=== PATIENT | female | born 1985 | race Caucasian/White ===

== ENCOUNTER → 2019-11-17 13:27 | Outpatient (BNVA) | payer OTHER, SELFPAY | PROVIDERS: PCP Internal Medicine; Referring Provider Internal Medicine; Visit Provider Internal Medicine | DX: Z76.89 Persons encountering health services in other specified circumstances (principal) ==

== ENCOUNTER 2020-08-24 13:54 | Outpatient (REF) | payer OTHER, SELFPAY ==
[2020-08-24 16:37] LABS: MANUAL DIFF FLAG NO
[2020-08-24 16:42] LABS: Basophils Absolute Auto 0.1 X10*3/uL (0.0-0.2); Basophils Percent Auto 0.7 % (0-2); Eosinophils Absolute Auto 0.5 X10*3/uL (0.0-0.4); Eosinophils Percent Auto 4.8 % (0-4); Hematocrit 38.6 % (37-47); Hemoglobin 12.8 g/dl (12.0-16.0); Imm Gran Abs Auto 0.03 X10*3/uL (0.00-0.03); Imm Gran Pct Auto 0.3 % (0.0-0.4); Lymphocytes Absolute Auto 2.6 X10*3/uL (1.2-4.9); Lymphocytes Percent Auto 23.8 % (20-40); Mean Corpuscular HGB Conc 33.2 g/dl (31.0-35.0); Mean Corpuscular Hemoglobin 30.5 pg (27.0-33.0); Mean Corpuscular Volume 91.9 fL (80-98); Mean Platelet Volume 10.9 fL (9.4-12.3); Monocytes Absolute Auto 0.5 X10*3/uL (0.1-1.2); Monocytes Percent Auto 4.7 % (2-11); Neutrophils Absolute Auto 7.2 X10*3/uL (2.0-8.3); Neutrophils Percent Auto 65.7 % (45-73); Platelet Count 359 X10*3/uL (160-400); Red Cell Distribution Width 12.8 % (11.0-16.0); White Blood Count 10.9 X10*3/uL (4.8-10.8)
[2020-08-24 17:03] LABS: Alanine Aminotransferase 9 U/L (0-31); Albumin Level 3.8 g/dL (3.5-5.0); Alkaline Phosphatase 80 U/L (39-117); Anion Gap 14 (12-20); Aspartate Amino Transferase 13 U/L (5-31); Bilirubin Total 0.2 mg/dL (0.0-1.0); Blood Urea Nitrogen 11 mg/dL (9-16); Carbon Dioxide 23 mmol/L (22-29); Chloride 107 mmol/L (96-108); Estimated Glomerular Filt Rate > 60; Glucose Random 84 mg/dL (60-115); Magnesium 1.9 mg/dL (1.6-2.6); Potassium 4.2 mmol/L (3.3-5.1); Sodium 140 mmol/L (135-145); Total Protein 6.5 g/dL (6.5-8.0)
[2020-08-24 17:27] LABS: TSH reflex Free T4 1.14 uIU/mL (0.32-4.0)
[2020-08-24 17:28] LABS: Vitamin B12 632 pg/mL (200-900)
[2020-08-29 13:36] LABS: Vitamin D 25-OH, D2 5 ng/mL; Vitamin D 25-OH, D3 18 ng/mL; Vitamin D 25-OH, Total 23 ng/mL (30-100)
== END 2020-08-24 13:55 | disposition home or self-care (01) ==
LOC: HO.HMGCLDS 13:54
PROVIDERS: PCP Internal Medicine; Visit Provider Internal Medicine
DX: E66.09 Other obesity due to excess calories (principal); R11.0 Nausea; R19.4 Change in bowel habit; R60.9 Edema, unspecified; R41.89 Other symptoms and signs involving cognitive functions and awareness; R79.89 Other specified abnormal findings of blood chemistry
CPT/HCPCS: 36415; 80053; 82306; 82607; 83735; 84443; 85025

== ENCOUNTER → 2020-10-04 14:50 | Outpatient (BNVA) | payer OTHER, SELFPAY | PROVIDERS: PCP Internal Medicine; Visit Provider Surgery Vascular Surgery ==

== ENCOUNTER 2020-10-24 10:15 | Outpatient (REF) | payer OTHER, SELFPAY ==
--- NOTE | ~2020-10-24 | US_ITS ---
EXAMINATION: BILATERAL LOWER EXTREMITY VENOUS ULTRASOUND (Reflux Exam) CLINICAL INDICATION: This is a 35-year-old female with varicose veins and venous insufficiency. COMPARISON: None. TECHNIQUE: Color flow triplex imaging and compression Doppler was performed to evaluate both the deep and the superficial systems bilaterally. To evaluate the superficial system, the examination was performed in the upright position. Color-flow Doppler ultrasound and compression ultrasound were utilized. In addition, maneuvers were utilized to demonstrate reflux. FINDINGS: 1. DEEP VENOUS ULTRASOUND OF THE RIGHT LOWER EXTREMITY: Common Femoral Vein: Compressible, normal respiratory variation and augmented flow. Femoral vein: Compressible, normal color flow and augmentation. Popliteal Vein: Compressible, normal augmentation. Deep Reflux: There is no evidence of reflux in the deep system in either the common femoral vein or the popliteal vein. . There is no evidence of a Walker's cyst. 2. SUPERFICIAL ULTRASOUND WITH DOPPLER OF RIGHT LOWER EXTREMITY GREAT SAPHENOUS VEIN: Saphenofemoral junction: 0.6 cm. The reflux time is 492 ms. Mid thigh: 0.5 cm. The reflux time is 1184 ms. Above knee: 0.5 cm. The reflux time is 716 ms per Below knee: 0.4 cm. There is no reflux at this level and below. Mid calf: 0.2 cm Ankle: 0.2 cm GSV REFLUX: There is reflux in the great saphenous vein at the saphenofemoral junction and extending down to above the knee. DUPLICATED GREAT SAPHENOUS VEIN: None SMALL SAPHENOUS VEIN: Upper: 0.2 cm Lower: 0.3 cm SSV REFLUX: No evidence of reflux. VEIN OF GIACOMINI: None Imaged. PERFORATORS: None Imaged VARICOSITIES: There are 0.4 cm proximal thigh, at the knee, mid calf varicose veins, respectively, with greater than 1300 ms of reflux. 3. DEEP VENOUS ULTRASOUND OF THE LEFT LOWER EXTREMITY: Common Femoral Vein: Compressible, normal respiratory variation and augmented flow. Femoral vein: Compressible, normal color flow and augmentation. Popliteal Vein: Compressible, normal augmentation. Deep Reflux: There is no evidence of reflux in the deep system in either the common femoral vein or the popliteal vein. There is no evidence of a Walker's cyst. 4. SUPERFICIAL ULTRASOUND WITH DOPPLER OF LEFT LOWER EXTREMITY GREAT SAPHENOUS VEIN: Saphenofemoral junction: 0.8 cm. There is no reflux Mid thigh: 0.6 cm. The reflux time is 2960 ms. Above knee: 0.5 cm. There is no reflux at this level and below. Below knee: 0.4 cm Mid calf: 0.2 cm Ankle: 0.2 cm GSV REFLUX: There is a short segment of mid thigh reflux in the great saphenous vein. There is no reflux at the junction. DUPLICATED GREAT SAPHENOUS VEIN: There is a 0.3 cm duplicated left lateral great saphenous vein without reflux SMALL SAPHENOUS VEIN: Upper: 0.2 cm Lower: 0.2 cm SSV REFLUX: No evidence of reflux. VEIN OF GIACOMINI: None Imaged. PERFORATORS: There are 0.2 proximal calf perforators with 872 ms of reflux VARICOSITIES: There are 0.5 cm mid thigh varicose veins with the reflux time of 2932 ms. There is 0.3 cm distal thigh varicose veins with 972 ms of reflux. US/US venous duplex LE BI IMPRESSION: 1. There is a patent right great saphenous vein with reflux of 492 ms at the junction. The reflux in the mid thighs 388 ms. There is reflux of 1184 ms in the mid thigh. 2. There is a patent right small saphenous vein without reflux. 3. There are varicose veins at the knee in the mid calf measuring 0.4 cm. 4. There is a patent left great saphenous vein with an isolated segment of reflux in the mid thigh. There is no reflux at the junction. 5. There is a duplicated left lateral great saphenous vein without reflux. 6. There is a patent left small saphenous vein without evidence of reflux. 7. There are left thigh varicose veins as noted with reflux.
== END 2020-10-24 10:16 | disposition home or self-care (01) ==
LOC: HO.US 10:15
PROVIDERS: PCP Internal Medicine; Visit Provider Surgery Vascular Surgery
DX: I83.12 Varicose veins of left lower extremity with inflammation (principal)
CPT/HCPCS: 93970

== ENCOUNTER → 2020-11-08 15:20 | Outpatient (BNVA) | payer OTHER, SELFPAY | PROVIDERS: PCP Internal Medicine; Visit Provider Surgery Vascular Surgery ==

== ENCOUNTER → 2020-12-16 09:20 | Outpatient (BNVA) | payer OTHER, SELFPAY | PROVIDERS: PCP Internal Medicine; Visit Provider Surgery Vascular Surgery | DX: I83.11 Varicose veins of right lower extremity with inflammation (principal) | CPT/HCPCS: 36475 ==

== ENCOUNTER 2020-12-19 12:51 | Outpatient (REF) | payer OTHER, SELFPAY ==
--- NOTE | ~2020-12-19 | US_ITS ---
EXAMINATION: US VENOUS ULTRASOUND WITH DOPPLER LOWER EXTREMITY, RIGHT CLINICAL INFORMATION: Pain and swelling. Post right leg RFA. COMPARISON: Previous exam October 2020 TECHNIQUE: Ultrasound of the deep veins is performed from the hip to the calf with compression sonography and color and pulse Doppler assessment. Spectral analysis with color-flow imaging is performed. FINDINGS: There is normal venous compression and respiratory variation and augmented flow. The visualized common femoral vein, superficial femoral vein, profunda femoral vein, popliteal vein, and the trifurcation region shows no evidence of deep venous thrombosis. The right greater saphenous vein is occluded post-RFA. This extends to 3.5 cm from the saphenofemoral junction. There is no significant popliteal fossa cyst. US/US venous duplex LE RT IMPRESSION: No DVT demonstrated in the right lower extremity.
== END 2020-12-19 12:52 | disposition home or self-care (01) ==
LOC: HO.HMGCX 12:51
PROVIDERS: PCP Internal Medicine; Visit Provider Surgery Vascular Surgery
DX: M79.604 Pain in right leg (principal); Z98.890 Other specified postprocedural states
CPT/HCPCS: 93971

== ENCOUNTER → 2020-12-29 15:44 | Outpatient (BNVA) | payer OTHER, SELFPAY | PROVIDERS: PCP Internal Medicine; Visit Provider Surgery Vascular Surgery ==

== ENCOUNTER 2022-08-22 12:14 | Outpatient (AMB) | payer OTHER, SELFPAY ==
[2022-08-22 12:17] VITALS: BP 100/74; PULSE 84; O2SAT 98; BMI 36.2
--- NOTE | 2022-08-22 12:17 | MHC.PC.OV ---
Vital Signs 08/22/22 12:17 Height 5 ft 3 in Weight 204 lb 4 oz BMI 36.2 BP 100/74 Blood Pressure Location Lt brachial Position Sitting Pulse 84 Pulse Source Pulse Oximeter Pulse Oximetry (%) 98 Oxygen Delivery Method Room Air Intake Visit Reasons: 3m follow up Allergies bernice [BERNICE] Allergy (Unknown, Verified 08/22/22 12:18) ITCHING trazodone [TRAZODONE] Allergy (Unknown, Verified 08/22/22 12:18) RASH escitalopram [From Lexapro] Adverse Reaction (Mild, Verified 08/22/22 12:18) Agitated sertraline [From Zoloft] Adverse Reaction (Verified 08/22/22 12:18) Nightmares Buspirone Adverse Reaction (Uncoded 06/20/22 09:30) Headache Singular Adverse Reaction (Uncoded 06/20/22 09:30) Dry mouth Medication List - Last Reconciled 08/22/22 by Roland Naqvi MD albuterol sulfate 90 mcg/actuation 1 puff inhalation Q6H PRN 30 days alprazolam 0.25 mg (1/2 x 0.5 mg) PO DAILY PRN 30 days cetirizine (Zyrtec) 10 mg PO DAILY clotrimazole-betamethasone 1-0.05 % 1 appl topical ONCE 30 days dextroamphetamine-amphetamine 10 mg 0 tabs PO valacyclovir 500 mg PO BID PRN Tobacco use date assessed: 08/22/22 Dental Screening Dental Screen Date: 08/22/22 Did you have a dental visit in the last 12 months?: Yes Did you have a dental problem in the last 6 months where you did not have access to dental care?: No Was dental information given to patient?: No HPI 3m follow up HPI Details Patient is a 37-year-old female came in today medication refill Anxiety stable with alprazolam 0.25 mg daily, 90 tablets sent for next 3 months Patient is complying with the treatment plan no signs of abuse. She is a fair of medication side effects and is avoiding to drive or using machine while taking the medication. Patient is also on Adderall through neurology Dr. Mcdonald Due for labs today Follow-up 3 months [facility] Medical History Asthma, mild intermittent Depression, major, recurrent Environmental allergies Heart palpitations LFT elevation Lipid disorder PVC (premature ventricular contraction) Surgical History History of wisdom tooth extraction Family History Father No problems noted. Mother Other malformations of cerebral vessels Other Mental health disorder Social History Housing: Apartment Patient Tobacco Use Status: Never used Tobacco e-Cigarette/Vaping Use: Never Used Second Hand Smoke Exposure: No Current occupational status: employed Cognitive needs: No Hearing needs: No Vision needs: No Questionnaire Thrive Questionnaire Date Thrive assessed: 01/17/22 AUDIT C Alcohol Use Questionnaire (AUDIT-C) 1. How often do you have a drink containing alcohol?: Never 3. How often do you have six or more drinks on one occasion?: Never Total Score: 0 Score Reviewed/Action Taken: Yes USMAN-7 AMB Questionnaire SUMAN-7 Date SUMAN - 7 assessed: 01/17/22 Source: Developed by Drs. Pepe Warren, Angie Dee, Sanju Mcdaniels and colleagues, with an educational jaiden from [employer]. Review of Systems Const Denies chills and Denies fever(s) ENT Denies epistaxis and Denies nasal discharge Card Denies chest pain Resp Denies chest congestion, Denies cough and Denies hemoptysis GI Denies diarrhea and Denies nausea Skin/Breast Denies rash Neuro Reports no additional complaints Psych Reports no additional complaints Endo Reports no additional complaints Physical exam (Primary Care) Vital Signs: Last Vital Signs Pulse 84 08/22/22 12:17 BP 100/74 08/22/22 12:17 Pulse Ox 98 08/22/22 12:17 Oxygen Delivery Method Room Air 08/22/22 12:17 BMI result Body Mass Index 36.2 Tobacco/Smoking Status: Tobacco use Status Tobacco use date assessed 08/22/22 08/22/22 12:20 Patient Tobacco Use Status Never used Tobacco 08/22/22 12:20 e-Cigarette/Vaping Use Never Used 08/22/22 12:20 Thrive Assessment: Date of Thrive Assessment Date Thrive assessed 01/17/22 08/22/22 12:20 Const General: cooperative, comfortable and no acute distress Orientation/consciousness: patient oriented x3 HENMT Head: Yes normocephalic Eyes General: appearance normal, both eyes and all related structures Neck Neck: Yes supple Resp Effort & Inspection: normal respiratory effort, no cough and no stridor Cardio Rhythm: regular rhythm Heart sounds: S1 normal heart sound present and S2 normal heart sound present Skin General skin exam: turgor normal Neuro General: patient oriented x3, tone normal and moves all extremities Extrem Right lower extremity: no edema Left lower extremity: no edema Assessment and Plan Assessment & Plan (1) Anxiety, generalized: Code(s): F41.1 - Generalized anxiety disorder (2) Depression, major, recurrent: Code(s): F33.9 - Major depressive disorder, recurrent, unspecified Qualifiers: Active/Remission status: in full remission Qualified Code(s): F33.42 - Major depressive disorder, recurrent, in full remission (3) Environmental allergies: Code(s): Z91.09 - Other allergy status, other than to drugs and biological substances (4) Lipid disorder: Code(s): E78.9 - Disorder of lipoprotein metabolism, unspecified (5) Asthma, mild intermittent: Code(s): J45.20 - Mild intermittent asthma, uncomplicated Qualifiers: Asthma complication type: uncomplicated Qualified Code(s): J45.20 - Mild intermittent asthma, uncomplicated Plan Patient is a 37-year-old female came in today medication refill Anxiety stable with alprazolam 0.25 mg daily, 90 tablets sent for next 3 months Patient is complying with the treatment plan no signs of abuse. She is a fair of medication side effects and is avoiding to drive or using machine while taking the medication. Patient is also on Adderall through neurology Dr. Harry Ocampo for labs today Follow-up 3 months Orders: Orders Comprehensive Met. Panel Today E78.9 - Disorder of lipoprotein metabolism, unspecified, F33.9 - Major depressive disorder, recurrent, unspecified, F41.1 - Generalized anxiety disorder, J45.20 - Mild intermittent asthma, uncomplicated, Z91.09 - Other allergy status, other than to drugs and biological substances Roland Naqvi MD LDL Cholesterol Direct Today E78.9 - Disorder of lipoprotein metabolism, unspecified, F33.9 - Major depressive disorder, recurrent, unspecified, F41.1 - Generalized anxiety disorder, J45.20 - Mild intermittent asthma, uncomplicated, Z91.09 - Other allergy status, other than to drugs and biological substances Roland Naqvi MD Complete Blood Count Auto Diff Today E78.9 - Disorder of lipoprotein metabolism, unspecified, F33.9 - Major depressive disorder, recurrent, unspecified, F41.1 - Generalized anxiety disorder, J45.20 - Mild intermittent asthma, uncomplicated, Z91.09 - Other allergy status, other than to drugs and biological substances Roland Naqvi MD Medications: Changed From alprazolam Do not drive or work with heavy machinery while taking this medication Refill will require doctor's visit 0.25 mg (1/2 x 0.5 mg) PO DAILY 30 days PRN 14 tabs 0RF anxiety To alprazolam Do not drive or work with heavy machinery while taking this medication Refill will require doctor's visit 0.25 mg PO DAILY PRN 90 tabs 0RF anxiety 90 days Roland Naqvi MD From dextroamphetamine-amphetamine 10 mg PO 0RF To dextroamphetamine-amphetamine 10 mg 10 mg PO Coding Level of Care Code Est Pt Level 3 (43898) Diagnoses Anxiety, generalized F41.1 Depression, major, recurrent F33.42 Active/Remission status: in full remission Environmental allergies Z91.09 Lipid disorder E78.9 Asthma, mild intermittent J45.20 Asthma complication type: uncomplicated
== END 2022-08-22 12:48 | disposition home or self-care (01) ==
PROVIDERS: Visit Provider Internal Medicine
DX: F41.1 Generalized anxiety disorder (principal); F33.42 Major depressive disorder, recurrent, in full remission; Z91.09 Other allergy status, other than to drugs and biological substances; J45.20 Mild intermittent asthma, uncomplicated; E78.9 Disorder of lipoprotein metabolism, unspecified
CPT/HCPCS: 99213

== ENCOUNTER 2022-08-22 12:33 | Outpatient (REF) | payer OTHER, SELFPAY ==
[2022-08-22 16:11] LABS: MANUAL DIFF FLAG NO
[2022-08-22 16:23] LABS: Basophils Absolute Auto 0.1 X10*3/uL (0.0-0.2); Basophils Percent Auto 1.1 % (0-2); Eosinophils Absolute Auto 0.6 X10*3/uL (0.0-0.4); Eosinophils Percent Auto 5.5 % (0-4); Hemoglobin 13.5 g/dl (12.0-16.0); Imm Gran Abs Auto 0.04 X10*3/uL (0.00-0.03); Imm Gran Pct Auto 0.4 % (0.0-0.4); Lymphocytes Absolute Auto 2.9 X10*3/uL (1.2-4.9); Lymphocytes Percent Auto 25.9 % (20-40); Mean Corpuscular HGB Conc 32.9 g/dl (31.0-35.0); Mean Corpuscular Hemoglobin 31.4 pg (27.0-33.0); Mean Corpuscular Volume 95.3 fL (80.0-98.0); Mean Platelet Volume 10.6 fL (9.4-12.3); Monocytes Absolute Auto 0.6 X10*3/uL (0.1-1.2); Monocytes Percent Auto 5.2 % (2-11); Neutrophils Absolute Auto 6.9 x10*3/uL (2.0-8.3); Neutrophils Percent Auto 61.9 % (45-73); Platelet Count 370 X10*3/uL (160-400); Red Cell Distribution Width 13.1 % (11.0-16.0); White Blood Count 11.1 X10*3/uL (4.8-10.8)
[2022-08-22 17:09] LABS: Alanine Aminotransferase 11 U/L (0-31); Albumin Level 4.2 g/dL (3.5-5.0); Alkaline Phosphatase 75 U/L (39-117); Anion Gap 13 (12-20); Aspartate Amino Transferase 13 U/L (5-31); Bilirubin Total 0.3 mg/dL (0.0-1.0); Blood Urea Nitrogen 17 mg/dL (9-16); Carbon Dioxide 21 mmol/L (22-29); Chloride 109 mmol/L (96-108); Estimated Glomerular Filt Rate > 60; Glucose Random 84 mg/dL (60-115); Potassium 4.1 mmol/L (3.3-5.1); Sodium 139 mmol/L (135-145); Total Protein 7.1 g/dL (6.5-8.0)
[2022-08-24 12:57] LABS: LDL Cholesterol Direct 167 mg/dL (<100)
== END 2022-08-22 12:34 | disposition home or self-care (01) ==
LOC: HO.HMGCLDS 12:33
PROVIDERS: PCP Internal Medicine; Visit Provider Internal Medicine
DX: E78.9 Disorder of lipoprotein metabolism, unspecified (principal); F33.9 Major depressive disorder, recurrent, unspecified; F41.1 Generalized anxiety disorder; J45.20 Mild intermittent asthma, uncomplicated; Z91.09 Other allergy status, other than to drugs and biological substances
CPT/HCPCS: 36415; 80053; 83721; 85025

== ENCOUNTER 2022-11-23 09:13 | Outpatient (AMB) | payer OTHER, SELFPAY ==
--- NOTE | 2022-11-23 09:16 | A.OFFPC_ITS ---
Vital Signs 11/23/22 09:19 Height 5 ft 3 in Weight 222 lb 2 oz BMI 39.3 BP 124/78 Blood Pressure Location Rt brachial Position Sitting Pulse 89 Pulse Source Pulse Oximeter Pulse Oximetry (%) 98 Oxygen Delivery Method Room Air Intake Visit Reasons: 3 month follow up Allergies bernice [BERNICE] Allergy (Unknown, Verified 11/23/22 09:17) ITCHING trazodone [TRAZODONE] Allergy (Unknown, Verified 11/23/22 09:17) RASH escitalopram [From Lexapro] Adverse Reaction (Mild, Verified 11/23/22 09:17) Agitated sertraline [From Zoloft] Adverse Reaction (Verified 11/23/22 09:17) Nightmares Buspirone Adverse Reaction (Uncoded 06/20/22 09:30) Headache Singular Adverse Reaction (Uncoded 06/20/22 09:30) Dry mouth Medication List - Last Reconciled 11/23/22 by Roland Naqvi MD albuterol sulfate 90 mcg/actuation 1 puff inhalation Q6H PRN 30 days alprazolam 0.25 mg PO DAILY PRN 90 days cetirizine (Zyrtec) 10 mg PO DAILY clotrimazole-betamethasone 1-0.05 % 1 appl topical ONCE 30 days dextroamphetamine-amphetamine 10 mg 10 mg PO valacyclovir 500 mg PO BID PRN Tobacco use date assessed: 11/23/22 Dental Screening Dental Screen Date: 11/23/22 Did you have a dental visit in the last 12 months?: Yes Did you have a dental problem in the last 6 months where you did not have access to dental care?: No Was dental information given to patient?: Patient has dentist HPI 3 month follow up HPI Details Patient is a 37-year-old female came in today for a follow-up appointment Patient has gained some more weight, she says that her cat and that made her very depressed. She is also questioning sleep apnea, she says that when she is sleeping on her back she snores and frequently wake up. She is tired all day and fall asleep easily if she is watching TV any time of the day. I have ordered home sleep study Anxiety stable with alprazolam 0.25 mg as needed, patient says that she tried not to take it daily. She does not need any refills at this time. She has enough medication., BMI is elevated at 39.3 Last time she had labs done her cholesterol also is elevated LDL is in 160s I have placed I request for dietary consultation for the patient for obesity as well as for lipid disorder. Patient is also on Adderall through neurology Dr. Mcdonald Allergies are stable Follow-up 3 months [facility] Medical History Asthma, mild intermittent Lipid disorder LFT elevation Environmental allergies Depression, major, recurrent PVC (premature ventricular contraction) Heart palpitations Surgical History History of wisdom tooth extraction Family History Father No problems noted. Mother Other malformations of cerebral vessels Other Mental health disorder Social History Housing: Apartment Patient Tobacco Use Status: Never used Tobacco e-Cigarette/Vaping Use: Never Used Second Hand Smoke Exposure: No Current occupational status: employed Cognitive needs: No Hearing needs: No Vision needs: No Questionnaire PHQ-9 Over the last 2 weeks, how often have you been bothered by any of the following problems? 1. Little interest or pleasure in doing things: several days 2. Feeling down, depressed, or hopeless: several days 3. Trouble falling or staying asleep, or sleeping too much: nearly every day 4. Feeling tired or having little energy: nearly every day 5. Poor appetite or overeating: nearly every day 6. Feeling bad about yourself - or that you are a failure or have let yourself or your family down: more than half the days 7. Trouble concentrating on things, such as reading the newspaper or watching television: more than half the days 8. Moving or speaking so slowly that other people could have noticed. Or the opposite - being so fidgety or restless that you have been moving around a lot more than usual: not at all 9. Thoughts that you would be better off or of hurting yourself in some way: not at all Total score: 15 Depression Screening Interpretation: Positive Depression Screening Follow-up: Declines treatment Depression Screening Done: Yes 37558 - PHQ-9 Billing: Yes Source: Developed by Drs. Pepe Warren, Angie Dee, Sanju Mcdaniels and colleagues, with an educational jaiden from [employer]. Thrive Questionnaire Date Thrive assessed: 01/17/22 SUMAN-7 AMB Questionnaire SUMAN-7 Date SUMAN - 7 assessed: 01/17/22 Source: Developed by Drs. Pepe Warren, Angie Dee, Sanju Mcdaniels and colleagues, with an educational jaiden from [employer]. Review of Systems Const Denies chills and Denies fever(s) ENT Denies epistaxis and Denies nasal discharge Card Denies chest pain Resp Denies chest congestion, Denies cough and Denies hemoptysis GI Denies diarrhea and Denies nausea Skin/Breast Denies rash Neuro Reports no additional complaints Psych Reports no additional complaints Endo Reports no additional complaints Physical exam (Primary Care) Vital Signs: Last Vital Signs Pulse 89 11/23/22 09:19 BP 124/78 11/23/22 09:19 Pulse Ox 98 11/23/22 09:19 Oxygen Delivery Method Room Air 11/23/22 09:19 BMI result Body Mass Index 39.3 Tobacco/Smoking Status: Tobacco use Status Tobacco use date assessed 11/23/22 11/23/22 09:22 Patient Tobacco Use Status Never used Tobacco 11/23/22 09:22 e-Cigarette/Vaping Use Never Used 11/23/22 09:22 PHQ-9: PHQ-9 Score PHQ-9: Total score 15 11/23/22 09:34 Depression Screening Interpretation: Positive Depression Screening Follow-up: Declines treatment Thrive Assessment: Date of Thrive Assessment Date Thrive assessed 01/17/22 11/23/22 09:22 Const General: cooperative, comfortable and no acute distress Orientation/consciousness: patient oriented x3 HENMT Head: Yes normocephalic Eyes General: appearance normal, both eyes and all related structures Neck Neck: Yes supple Resp Effort & Inspection: normal respiratory effort, no cough and no stridor Cardio Rhythm: regular rhythm Heart sounds: S1 normal heart sound present and S2 normal heart sound present Skin General skin exam: turgor normal Neuro General: patient oriented x3, tone normal and moves all extremities Extrem Right lower extremity: no edema Left lower extremity: no edema Office Procedures Flu Questionnaire Does the patient have a severe egg allergy?: No Does the patient have severe life threatening allergies?: No Does the patient have a fever or illness today?: No Has the patient ever had Guillain-Nisswa Syndrome?: No Has the patient ever had any past reaction to a flu shot?: No Immunizations flu vacc [id number] 6mos up(PF) 60 mcg(15 mcgx4)/0.5 mL IM syringe Performing Provider: Roland Naqvi MD [facility] Administered by: GOOD Alvarez on 11/23/22 09:35 Dose Route Admin Location Dispensed Lot Number Expiration Date NDC Makeup Sales Advisor 0.5 mL IM Right Deltoid 0.5 mL [id number] 08/11/23 15751-234-66 Cheers VIS Given Date VIS Provided VIS Publication Date 11/23/22 Single Vaccine 20 Eligibility Eligibility Date Funding Source Not [facility] Eligible 11/23/22 Private Assessment and Plan Assessment & Plan (1) Frequent nocturnal awakening: Code(s): G47.00 - Insomnia, unspecified (2) Daytime somnolence: Code(s): R40.0 - Somnolence (3) Depression, major, recurrent: Code(s): F33.9 - Major depressive disorder, recurrent, unspecified Qualifiers: Active/Remission status: in full remission Qualified Code(s): F33.42 - Major depressive disorder, recurrent, in full remission (4) Anxiety, generalized: Code(s): F41.1 - Generalized anxiety disorder (5) Environmental allergies: Code(s): Z91.09 - Other allergy status, other than to drugs and biological substances (6) Lipid disorder: Code(s): E78.9 - Disorder of lipoprotein metabolism, unspecified (7) Asthma, mild intermittent: Code(s): J45.20 - Mild intermittent asthma, uncomplicated Qualifiers: Asthma complication type: uncomplicated Qualified Code(s): J45.20 - Mild intermittent asthma, uncomplicated (8) Brain fog: Code(s): R41.89 - Other symptoms and signs involving cognitive functions and awareness (9) Obesity due to excess calories: Code(s): E66.09 - Other obesity due to excess calories Qualifiers: Body mass index: BMI 39.0-39.9 Obesity classification: adult class 2 (BMI 35 - 39.9) Serious obesity comorbidity presence: without serious comorbidity Qualified Code(s): E66.09 - Other obesity due to excess calories; Z68.39 - Body mass index [BMI] 39.0-39.9, adult (10) Snoring: Code(s): R06.83 - Snoring Plan Patient is a 37-year-old female came in today for a follow-up appointment Patient has gained some more weight, she says that her cat and that made her very depressed. She is also questioning sleep apnea, she says that when she is sleeping on her back she snores and frequently wake up. She is tired all day and fall asleep easily if she is watching TV any time of the day. I have ordered home sleep study Anxiety stable with alprazolam 0.25 mg as needed, patient says that she tried n ot to take it daily. She does not need any refills at this time. She has enough medication., BMI is elevated at 39.3 Last time she had labs done her cholesterol also is elevated LDL is in 160s I have placed I request for dietary consultation for the patient for obesity as well as for lipid disorder. Patient is also on Adderall through neurology Dr. Mcdonald Allergies are stable Follow-up 3 months Orders: Orders RT home sleep study Today E66.09 - Other obesity due to excess calories, G47.00 - Insomnia, unspecified, R06.83 - Snoring, R40.0 - Somnolence, R41.89 - Other symptoms and signs involving cognitive functions and awareness Influenza [id number] Immunization Today Z23 - Encounter for immunization Coding Level of Care Code Est Pt Level 4 (31554) Diagnoses Frequent nocturnal awakening G47.00 Daytime somnolence R40.0 Recurrent major depressive disorder, in full remission F33.42 Active/Remission status: in full remission Anxiety, generalized F41.1 Environmental allergies Z91.09 Lipid disorder E78.9 Mild intermittent asthma without complication J45.20 Asthma complication type: uncomplicated Brain fog R41.89 Class 2 obesity due to excess calories without serious comorbidity with body mass index (BMI) of 39.0 to 39.9 in adult E66.09; Z68.39 Body mass index: BMI 39.0-39.9 Obesity classification: adult class 2 (BMI 35 - 39.9) Serious obesity comorbidity presence: without serious comorbidity Snoring R06.83
[2022-11-23 09:19] VITALS: BP 124/78; PULSE 89; O2SAT 98; BMI 39.3
== END 2022-11-23 09:35 | disposition home or self-care (01) ==
PROVIDERS: PCP Internal Medicine; Visit Provider Internal Medicine
DX: G47.00 Insomnia, unspecified (principal); R40.0 Somnolence; F33.42 Major depressive disorder, recurrent, in full remission; F41.1 Generalized anxiety disorder; Z91.09 Other allergy status, other than to drugs and biological substances; E78.9 Disorder of lipoprotein metabolism, unspecified; J45.20 Mild intermittent asthma, uncomplicated; R41.89 Other symptoms and signs involving cognitive functions and awareness; E66.09 Other obesity due to excess calories; Z68.39 Body mass index [BMI] 39.0-39.9, adult; R06.83 Snoring; Z23 Encounter for immunization
CPT/HCPCS: 90471; 90686; 99214

== ENCOUNTER → 2023-01-01 08:41 | Outpatient (REF) | payer OTHER, SELFPAY | LOC: HO.SL 08:41 | PROVIDERS: PCP Internal Medicine; Visit Provider Internal Medicine | DX: G47.00 Insomnia, unspecified (principal); R40.0 Somnolence; R41.89 Other symptoms and signs involving cognitive functions and awareness; E66.09 Other obesity due to excess calories; R06.83 Snoring | CPT/HCPCS: 95806 ==

== ENCOUNTER → 2023-01-01 09:15 | Outpatient (BNV) | payer OTHER, SELFPAY | PROVIDERS: PCP Internal Medicine; Visit Provider Internal Medicine | DX: R06.83 Snoring (principal); G47.00 Insomnia, unspecified | CPT/HCPCS: 95806 ==

== ENCOUNTER 2023-01-18 09:54 | Outpatient (AMB) | payer OTHER, SELFPAY ==
[2023-01-18 10:01] VITALS: BP 110/78; PULSE 98; O2SAT 98; BMI 41.1
--- NOTE | 2023-01-18 10:01 | MHC.PC.OV ---
Vital Signs 01/18/23 10:01 Height 5 ft 3 in Weight 232 lb BMI 41.1 BP 110/78 Blood Pressure Location Rt brachial Position Sitting Pulse 98 Pulse Source Pulse Oximeter Pulse Oximetry (%) 98 Oxygen Delivery Method Room Air Intake Visit Reasons: PE Is last menstrual period known: Yes Last menstrual period: 01/11/23 Allergies bernice [BERNICE] Allergy (Unknown, Verified 01/18/23 10:02) ITCHING trazodone [TRAZODONE] Allergy (Unknown, Verified 01/18/23 10:02) RASH avocado Allergy (Verified 01/18/23 10:02) Stomach Upset Milk Containing Products (Dairy) Allergy (Verified 01/18/23 10:02) Stomach Upset soy Allergy (Verified 01/18/23 10:02) Stomach Upset escitalopram [From Lexapro] Adverse Reaction (Mild, Verified 01/18/23 10:02) Agitated sertraline [From Zoloft] Adverse Reaction (Verified 01/18/23 10:02) Nightmares Buspirone Adverse Reaction (Uncoded 01/18/23 10:02) Headache Singular Adverse Reaction (Uncoded 01/18/23 10:02) Dry mouth Medication List - Last Reconciled 01/18/23 by Roland Naqvi MD albuterol sulfate 90 mcg/actuation 1 puff inhalation Q6H PRN 30 days alprazolam 0.25 mg PO DAILY PRN 90 days cetirizine (Zyrtec) 10 mg PO DAILY clotrimazole-betamethasone 1-0.05 % 1 appl topical BID PRN dextroamphetamine-amphetamine 10 mg 10 mg PO valacyclovir 500 mg PO BID PRN Tobacco use date assessed: 01/18/23 Dental Screening Dental Screen Date: 01/18/23 HPI PE HPI Details Physical exam appointment Patient have [facility] Pap smear and breast exam is through them Anxiety: Continued to feel anxious she has tried Lexapro and sertraline and buspirone but could not take it because of side effect Currently have a script for alprazolam that she is taking rarely as patient does not want to get dependent on it. She is interested in starting therapy she will be meeting with our behavior health coordinator today Obesity: Patient already had meeting with dietitian and she is trying. Follow-up six-month for medication refill alprazolam [facility] Medical History Asthma, mild intermittent Lipid disorder LFT elevation Environmental allergies Depression, major, recurrent PVC (premature ventricular contraction) Heart palpitations Surgical History History of wisdom tooth extraction Family History Father No problems noted. Mother Other malformations of cerebral vessels Other Mental health disorder Social History Housing: Apartment Patient Tobacco Use Status: Never used Tobacco e-Cigarette/Vaping Use: Never Used Second Hand Smoke Exposure: No Current occupational status: employed Cognitive needs: No Hearing needs: No Vision needs: No Female Reproductive History Menstrual Date of last menstrual period: 01/11/23 Questionnaire PHQ-9 Over the last 2 weeks, how often have you been bothered by any of the following problems? 1. Little interest or pleasure in doing things: several days 2. Feeling down, depressed, or hopeless: several days 3. Trouble falling or staying asleep, or sleeping too much: nearly every day 4. Feeling tired or having little energy: nearly every day 5. Poor appetite or overeating: more than half the days 6. Feeling bad about yourself - or that you are a failure or have let yourself or your family down: not at all 7. Trouble concentrating on things, such as reading the newspaper or watching television: more than half the days 8. Moving or speaking so slowly that other people could have noticed. Or the opposite - being so fidgety or restless that you have been moving around a lot more than usual: not at all 9. Thoughts that you would be better off or of hurting yourself in some way: not at all Total score: 12 Depression Screening Interpretation: Positive Depression Screening Follow-up: Existing condition and In treatment Depression Screening Done: Yes 17179 - PHQ-9 Billing: Yes Source: Developed by Drs. Pepe Warren, Angie Dee, Sanju Mcdaniels and colleagues, with an educational jaiden from [employer]. Thrive Questionnaire Date Thrive assessed: 01/18/23 I am a: Patient What is your living situation today?: I have a steady place to live Within the past 12 months, did the food you bought not last and you didn't have the money to get more?: Never true Within the past 12 months, did you worry whether your food would run out before you got money to buy more?: Never true Do you have trouble paying for medicines?: No Do you have trouble getting transportation to medical appointments?: No Do you have trouble paying your heating and electricity bill?: No Do you have trouble taking care of your child, family member or friend?: No Do you have trouble with day-to-day activities such as bathing, preparing meals, shopping, managing finances, etc.?: No Are you currently unemployed and looking for a job?: No Are you interested in more education?: No Please select the resources that you would like help with: None Currently or been in a relationship where the following occur: no concerns reported AUDIT C Alcohol Use Questionnaire (AUDIT-C) 1. How often do you have a drink containing alcohol?: Never Total Score: 0 SUMAN-7 AMB Questionnaire SUMAN-7 Date SUMAN - 7 assessed: 01/18/23 Feeling nervous, anxious, or on edge: 3 = Nearly every day Not being able to stop or control worryin = Nearly every day Worrying too much about different things: 3 = Nearly every day Trouble relaxin = More than half the days Being so restless that it is hard to sit still: 3 = Nearly every day Becoming easily annoyed or irritable: 1 = Several days Feeling afraid as if something awful might happen: 2 = More than half the days Total SUMAN-7 score (0-4 normal; 5-9 mild; 10-14 moderate; 15-21 severe): 17 Source: Developed by Drs. Pepe Warren, Angie Dee, Sanju Mcdaniels and colleagues, with an educational jaiden from [employer]. SUMAN-7 Assessment Billing SUMAN-7 Assessment Tool: SUMAN-7 Assessment 50222 Review of Systems Const Denies chills, Denies fever(s) and Denies headache(s) Eyes Denies blurry vision ENT Denies headache(s), Denies nasal discharge, Denies nasal obstruction, Denies odynophagia and Denies sinus pain Card Denies chest pain at rest and Denies chest pain with activity Resp Denies cough and Denies hemoptysis GI Denies diarrhea, Denies odynophagia, Denies vomiting and Denies hematemesis Reports as per HPI Musc Denies abnormal gait Skin/Breast Reports as per HPI Neuro Denies Neuro-related abnormal movements, Denies Abnormal speech present, Denies abnormal gait, Denies headache(s) and Denies Sensory deficit (Neuro) Psych Denies mood swings and Denies paranoia Endo Reports as per HPI Dennis/Lymph Reports as per HPI Aller/Immun Reports as per HPI Physical exam (Primary Care) Vital Signs: Last Vital Signs Pulse 98 01/18/23 10:01 BP 110/78 01/18/23 10:01 Pulse Ox 98 01/18/23 10:01 Oxygen Delivery Method Room Air 01/18/23 10:01 BMI result Body Mass Index 41.1 Tobacco/Smoking Status: Tobacco use Status Tobacco use date assessed 01/18/23 01/18/23 10:07 Patient Tobacco Use Status Never used Tobacco 01/18/23 10:07 e-Cigarette/Vaping Use Never Used 01/18/23 10:07 PHQ-9: PHQ-9 Score PHQ-9: Total score 12 01/18/23 10:40 Depression Screening Interpretation: Positive Depression Screening Follow-up: Existing condition and In treatment Thrive Assessment: Date of Thrive Assessment Date Thrive assessed 01/18/23 01/18/23 10:07 Currently or been in a relationship where the following occur: no concerns reported Const General: cooperative, comfortable and no acute distress Orientation/consciousness: patient oriented x3 HENMT Head: Yes normocephalic and Yes atraumatic Eyes General: appearance normal, both eyes and all related structures Pupils: Equal, round and reactive pupils present EOM: EOMs intact bilaterally Neck Neck: Yes supple and No lymphadenopathy Thyroid: Thyroid normal Lymphatic: no lymphadenopathy noted Resp Effort & Inspection: normal respiratory effort and able to speak in complete sentences Auscultation: clear to auscultation bilaterally Cardio Heart sounds: S1 normal heart sound present and S2 normal heart sound present GI Palpation (GI): Soft to palpation and nontender Auscultation: normal bowel sounds General: Yes no CVA tenderness Back/Spine/Pelvis Back: no CVA tenderness Skin General skin exam: elasticity normal and turgor normal Neuro General: patient oriented x3 and gait normal Cranial nerves: Yes Equal, round and reactive pupils present Speech: No Abnormal speech present Sensory Exam: No Sensory deficit (Neuro) Coordination: tandem gait normal and Romberg test negative Extrem General: Yes normal exam except as noted and No edema Assessment and Plan Assessment & Plan (1) Encounter for general adult medical examination with abnormal findings: Code(s): Z00.01 - Encounter for general adult medical examination with abnormal findings (2) Morbid obesity due to excess calories: Code(s): E66.01 - Morbid (severe) obesity due to excess calories (3) Lipid disorder: Code(s): E78.9 - Disorder of lipoprotein metabolism, unspecified (4) Depression, major, recurrent: Code(s): F33.9 - Major depressive disorder, recurrent, unspecified Qualifiers: Active/Remission status: in full remission Qualified Code(s): F33.42 - Major depressive disorder, recurrent, in full remission (5) Environmental allergies: Code(s): Z91.09 - Other allergy status, other than to drugs and biological substances (6) Anxiety, generalized: Code(s): F41.1 - Generalized anxiety disorder (7) Snoring: Code(s): R06.83 - Snoring Plan Physical exam appointment Patient have [facility] Pap smear and breast exam is through them Anxiety: Continued to feel anxious she has tried Lexapro and sertraline and buspirone but could not take it because of side effect Currently have a script for alprazolam that she is taking rarely as patient does not want to get dependent on it. She is interested in starting therapy she will be meeting with our behavior health coordinator today Obesity: Patient already had meeting with dietitian and she is trying. Follow-up six-month for medication refill alprazolam Patient had a sleep study done, she does not have a sleep apnea but patient snores throughout the night I have placed a referral for her to see an ENT doctor. Orders: Referrals Ear/Nose/Throat Referral R06.83 - Snoring Medications: New venlafaxine ER 37.5 mg PO BEDTIME 14 caps 0RF Coding Level of Care Code Est Pt Prev Care 18-39y(34902) Diagnoses Encounter for general adult medical examination with abnormal findings Z00.01 Morbid obesity due to excess calories E66.01 Lipid disorder E78.9 Recurrent major depressive disorder, in full remission F33.42 Active/Remission status: in full remission Environmental allergies Z91.09 Anxiety, generalized F41.1 Snoring R06.83 Additional Codes SUMAN-7 Assessment Billing - SUMAN-7 Assessment Tool: SUMAN-7 Assessment 29196 ([id number])
== END 2023-01-18 11:19 | disposition home or self-care (01) ==
PROVIDERS: Visit Provider Internal Medicine
DX: Z00.00 Encounter for general adult medical examination without abnormal findings (principal); F33.42 Major depressive disorder, recurrent, in full remission; E66.01 Morbid (severe) obesity due to excess calories; Z68.41 Body mass index [BMI] 40.0-44.9, adult; Z91.09 Other allergy status, other than to drugs and biological substances; E78.9 Disorder of lipoprotein metabolism, unspecified; F41.1 Generalized anxiety disorder; R06.83 Snoring
CPT/HCPCS: 96127; 99395

== ENCOUNTER 2023-03-20 15:31 | Outpatient (AMB) | payer OTHER, SELFPAY ==
[2023-03-20 15:34] VITALS: BP 120/78; PULSE 96; TEMP 36.2; O2SAT 97; BMI 40.6
--- NOTE | 2023-03-20 15:34 | MHC.OFFWIV ---
Intake Vital Signs 03/20/23 15:34 Height 5 ft 3 in Weight 229 lb BMI 40.6 BP 120/78 Blood Pressure Location Lt brachial Position Sitting Pulse 96 Pulse Source Pulse Oximeter Temp 97.2 F Temp Source Temporal Artery Scan Pulse Oximetry (%) 97 Oxygen Delivery Method Room Air Intake Visit Reasons: EP stomach rash . Intake Note: pt is here today for stomach rash started 1 week ago Patient Tobacco Use Status: Never used Tobacco Allergies bernice [BERNICE] Allergy (Unknown, Verified 03/20/23 15:38) ITCHING trazodone [TRAZODONE] Allergy (Unknown, Verified 03/20/23 15:38) RASH avocado Allergy (Verified 03/20/23 15:38) Stomach Upset Milk Containing Products (Dairy) Allergy (Verified 03/20/23 15:38) Stomach Upset soy Allergy (Verified 03/20/23 15:38) Stomach Upset escitalopram [From Lexapro] Adverse Reaction (Mild, Verified 03/20/23 15:38) Agitated sertraline [From Zoloft] Adverse Reaction (Verified 03/20/23 15:38) Nightmares Buspirone Adverse Reaction (Uncoded 01/18/23 10:02) Headache Singular Adverse Reaction (Uncoded 01/18/23 10:02) Dry mouth Do you need a note to return to daycare/school/sports/work: No HPI HPI Comments History of Present Illness Details Patient presents to office with rash It is located on chest, abdomen and back No itch or pain, 0/10 Thought in past she had similar lesions to arm and used a fungal/steroid lotion which helped She denies fever or chills No drainage from rash No known irritants No other complaints PFSH Medical History Asthma, mild intermittent Lipid disorder LFT elevation Environmental allergies Depression, major, recurrent PVC (premature ventricular contraction) Heart palpitations Surgical History History of wisdom tooth extraction Family History Father No problems noted. Mother Other malformations of cerebral vessels Other Mental health disorder Social History Housing: Apartment Patient Tobacco Use Status: Never used Tobacco e-Cigarette/Vaping Use: Never Used Second Hand Smoke Exposure: No Current occupational status: employed Cognitive needs: No Hearing needs: No Vision needs: No Review of Systems Const Denies chills and Denies fever(s) ENT Denies otalgia, Denies nasal discharge (sputum is yellow) and Denies sore throat Resp Denies cough Skin/Breast Reports rash Physical Exam Vital Signs: Last Vital Signs Temp 97.2 F 03/20/23 15:34 Pulse 96 03/20/23 15:34 BP 120/78 03/20/23 15:34 Pulse Ox 97 03/20/23 15:34 Oxygen Delivery Method Room Air 03/20/23 15:34 BMI result Body Mass Index 40.6 General: Non-toxic, NAD. Speaking full sentences. Skin: Warm dry throughout. Pt has approx 5 erythematous well demarcated small approx 0.5-1cc flat lesions to abdomen, L breast. One larger lesion to R lumbar region. None to neck, face, arms No drainage, fluctuance or induration. No vesicles or surrounding warmth/extensive erythema Eye: EOMI Respiratory: No respiratory distress Cardiac: RRR. MSK: Full ROM extremities. Neurology: A/O. No aphasia or facial droop. Gait without abnormality Psych: Good mood and affect Assessment & Plan Assessment & Plan (1) Pityriasis rosea: Code(s): L42 - Pityriasis rosea Plan: Patient seen and evaluated. Rash consistent with Pityriasis Rosea No respiratory involvement Discussed sun exposure is good to dry out rash Will call with concerns Educated might spread and we discussed timeline/distribution of rash Patient gave verbal understanding and had no additional questions or concerns at time of discharge All questions answered Coding Level of Care Code Est Pt Level 3 (87667) Diagnoses Pityriasis rosea L42
== END 2023-03-20 15:58 | disposition home or self-care (01) ==
PROVIDERS: PCP Internal Medicine; Visit Provider Physician Assistant
DX: L42 Pityriasis rosea (principal)
CPT/HCPCS: 99213

== ENCOUNTER 2023-04-09 13:48 | Outpatient (AMB) | payer OTHER, SELFPAY ==
--- NOTE | 2023-04-09 13:50 | MHC.PC.OV ---
Vital Signs 04/09/23 13:51 Height 5 ft 3 in Weight 248 lb 3 oz BMI 44.0 BP 124/82 Blood Pressure Location Rt brachial Position Sitting Pulse 109 H Pulse Source Pulse Oximeter Pulse Oximetry (%) 98 Oxygen Delivery Method Room Air Intake Visit Reasons: Nausea Allergies bernice [BERNICE] Allergy (Unknown, Verified 04/09/23 13:51) ITCHING trazodone [TRAZODONE] Allergy (Unknown, Verified 04/09/23 13:51) RASH avocado Allergy (Verified 04/09/23 13:51) Stomach Upset Milk Containing Products (Dairy) Allergy (Verified 04/09/23 13:51) Stomach Upset soy Allergy (Verified 04/09/23 13:51) Stomach Upset escitalopram [From Lexapro] Adverse Reaction (Mild, Verified 04/09/23 13:51) Agitated sertraline [From Zoloft] Adverse Reaction (Verified 04/09/23 13:51) Nightmares Buspirone Adverse Reaction (Uncoded 01/18/23 10:02) Headache Singular Adverse Reaction (Uncoded 01/18/23 10:02) Dry mouth Medication List - Last Reconciled 04/09/23 by Roland Naqvi MD albuterol sulfate 90 mcg/actuation 1 puff inhalation Q6H PRN 30 days alprazolam 0.25 mg PO DAILY PRN 90 days cetirizine (Zyrtec) 10 mg PO DAILY dextroamphetamine-amphetamine 5 mg tabs PO valacyclovir 500 mg PO BID PRN venlafaxine ER 37.5 mg PO BEDTIME Tobacco use date assessed: 04/09/23 Dental Screening Dental Screen Date: 04/09/23 Did you have a dental visit in the last 12 months?: Yes Did you have a dental problem in the last 6 months where you did not have access to dental care?: No Was dental information given to patient?: Patient has dentist HPI Nausea HPI Details Patient came in today to talk about feeling of sudden nausea Associated with cold sweats and palpitations Patient says that it happened suddenly and then resolves in few minutes She feels as if she is having episodes of hypoglycemia We did EKG today which showed normal sinus rhythm 90 beats per minute no acute ST-T findings Patient has seen Cardiology in the past and was cleared, that was in 2020 Patient also suffers from severe anxiety and depression And is taking medication for them I am ordering labs for the patient To rule out possibility of early diabetes or hypoglycemia Patient will return after the reports for follow-up or a will create telemedicine visit If reports came back within normal range we will discuss anxiety for the [facility] Medical History Asthma, mild intermittent Lipid disorder LFT elevation Environmental allergies Depression, major, recurrent PVC (premature ventricular contraction) Heart palpitations Surgical History History of wisdom tooth extraction Family History Father No problems noted. Mother Other malformations of cerebral vessels Other Mental health disorder Social History Housing: Apartment Patient Tobacco Use Status: Never used Tobacco e-Cigarette/Vaping Use: Never Used Second Hand Smoke Exposure: No Current occupational status: employed Cognitive needs: No Hearing needs: No Vision needs: No Questionnaire PHQ-9 Over the last 2 weeks, how often have you been bothered by any of the following problems? 1. Little interest or pleasure in doing things: several days 2. Feeling down, depressed, or hopeless: not at all 3. Trouble falling or staying asleep, or sleeping too much: more than half the days 4. Feeling tired or having little energy: nearly every day 5. Poor appetite or overeating: more than half the days 6. Feeling bad about yourself - or that you are a failure or have let yourself or your family down: several days 7. Trouble concentrating on things, such as reading the newspaper or watching television: more than half the days 8. Moving or speaking so slowly that other people could have noticed. Or the opposite - being so fidgety or restless that you have been moving around a lot more than usual: several days 9. Thoughts that you would be better off or of hurting yourself in some way: not at all Total score: 12 Depression Screening Interpretation: Positive Depression Screening Follow-up: Existing condition and In treatment Depression Screening Done: Yes 18098 - PHQ-9 Billing: Yes Source: Developed by Drs. Angie Pratt, Sanju Mcdaniels and colleagues, with an educational jaiden from [employer]. Thrive Questionnaire Date Thrive assessed: 04/09/23 I am a: Patient What is your living situation today?: I have a steady place to live Within the past 12 months, did the food you bought not last and you didn't have the money to get more?: Never true Within the past 12 months, did you worry whether your food would run out before you got money to buy more?: Never true Do you have trouble paying for medicines?: No Do you have trouble getting transportation to medical appointments?: No Do you have trouble paying your heating and electricity bill?: No Do you have trouble taking care of your child, family member or friend?: No Do you have trouble with day-to-day activities such as bathing, preparing meals, shopping, managing finances, etc.?: No Are you currently unemployed and looking for a job?: No Are you interested in more education?: Yes Please select the resources that you would like help with: None Currently or been in a relationship where the following occur: no concerns reported THRIVE Score: 0 SUMAN-7 AMB Questionnaire SUMAN-7 Date SUMAN - 7 assessed: 04/09/23 Feeling nervous, anxious, or on edge: 3 = Nearly every day Not being able to stop or control worryin = Nearly every day Worrying too much about different things: 3 = Nearly every day Trouble relaxin = More than half the days Being so restless that it is hard to sit still: 3 = Nearly every day Becoming easily annoyed or irritable: 0 = Not at all Feeling afraid as if something awful might happen: 1 = Several days Total SUMAN-7 score (0-4 normal; 5-9 mild; 10-14 moderate; 15-21 severe): 15 Source: Developed by Drs. Pepe Warren, Angie Dee, Sanju Mcdaniels and colleagues, with an educational jaiden from [employer]. SUMAN-7 Assessment Billing SUMAN-7 Assessment Tool: SUMAN-7 Assessment 87963 (Existing condition in treatment) Review of Systems Const Denies chills and Denies fever(s) ENT Denies epistaxis and Denies nasal discharge Card Denies chest pain Resp Denies chest congestion, Denies cough and Denies hemoptysis Skin/Breast Denies rash Neuro Reports no additional complaints Psych Reports no additional complaints Endo Reports no additional complaints Physical exam (Primary Care) Vital Signs: Last Vital Signs Pulse 109 H 04/09/23 13:51 BP 124/82 04/09/23 13:51 Pulse Ox 98 04/09/23 13:51 Oxygen Delivery Method Room Air 04/09/23 13:51 BMI result Body Mass Index 44.0 Tobacco/Smoking Status: Tobacco use Status Tobacco use date assessed 04/09/23 04/09/23 13:58 Patient Tobacco Use Status Never used Tobacco 04/09/23 13:58 e-Cigarette/Vaping Use Never Used 04/09/23 13:58 PHQ-9: PHQ-9 Score PHQ-9: Total score 12 04/09/23 15:01 Depression Screening Interpretation: Positive Depression Screening Follow-up: Existing condition and In treatment Thrive Assessment: Date of Thrive Assessment Date Thrive assessed 04/09/23 04/09/23 15:01 Currently or been in a relationship where the following occur: no concerns reported Const General: cooperative, comfortable and no acute distress Orientation/consciousness: patient oriented x3 HENMT Head: Yes normocephalic Eyes General: appearance normal, both eyes and all related structures Neck Neck: Yes supple Resp Effort & Inspection: normal respiratory effort, no cough and no stridor Cardio Rhythm: regular rhythm Heart sounds: S1 normal heart sound present and S2 normal heart sound present GI Other: Abdomen is soft nontender bowel sounds positive Skin General skin exam: turgor normal Neuro General: patient oriented x3, tone normal and moves all extremities Extrem Right lower extremity: no edema Left lower extremity: no edema Office Procedures EKG [id number], Complete Assessment and Plan Assessment & Plan (1) Heart palpitations: Code(s): R00.2 - Palpitations (2) Cold sweat: Code(s): R68.89 - Other general symptoms and signs (3) Nausea: Code(s): R11.0 - Nausea (4) Anxiety, generalized: Code(s): F41.1 - Generalized anxiety disorder (5) LFT elevation: Code(s): R79.89 - Other specified abnormal findings of blood chemistry (6) IBS (irritable bowel syndrome): Code(s): K58.9 - Irritable bowel syndrome without diarrhea Qualifiers: Irritable bowel syndrome type: with both diarrhea and constipation Qualified Code(s): K58.2 - Mixed irritable bowel syndrome (7) Obesity due to excess calories: Code(s): E66.09 - Other obesity due to excess calories Qualifiers: Obesity classification: adult class 2 (BMI 35 - 39.9) Serious obesity comorbidity presence: without serious comorbidity Body mass index: BMI 39.0-39.9 Qualified Code(s): E66.09 - Other obesity due to excess calories; Z68.39 - Body mass index [BMI] 39.0-39.9, adult Plan Patient came in today to talk about feeling of sudden nausea Associated with cold sweats and palpitations Patient says that it happened suddenly and then resolves in few minutes She feels as if she is having episodes of hypoglycemia We did EKG today which showed normal sinus rhythm 90 beats per minute no acute ST-T findings Patient has seen Cardiology in the past and was cleared, that was in 2020 Patient also suffers from severe anxiety and depression And is taking medication for them I am ordering labs for the patient To rule out possibility of early diabetes or hypoglycemia Patient will return after the reports for follow-up or a will create telemedicine visit If reports came back within normal range we will discuss anxiety further Orders: Orders Complete Blood Count Auto Diff Today F41.1 - Generalized anxiety disorder, K58.9 - Irritable bowel syndrome without diarrhea, R00.2 - Palpitations, R11.0 - Nausea, R68.89 - Other general symptoms and signs, R79.89 - Other specified abnormal findings of blood chemistry Hemoglobin A1c Today F41.1 - Generalized anxiety disorder, K58.9 - Irritable bowel syndrome without diarrhea, R00.2 - Palpitations, R11.0 - Nausea, R68.89 - Other general symptoms and signs, R79.89 - Other specified abnormal findings of blood chemistry TSH reflex Free T4 Today F41.1 - Generalized anxiety disorder, K58.9 - Irritable bowel syndrome without diarrhea, R00.2 - Palpitations, R11.0 - Nausea, R68.89 - Other general symptoms and signs, R79.89 - Other specified abnormal findings of blood chemistry AMB EKG-In Office Today R00.2 - Palpitations Comprehensive [place]. Panel Fast Today F41.1 - Generalized anxiety disorder, K58.9 - Irritable bowel syndrome without diarrhea, R00.2 - Palpitations, R11.0 - Nausea, R68.89 - Other general symptoms and signs, R79.89 - Other specified abnormal findings of blood chemistry C Peptide Today F41.1 - Generalized anxiety disorder, K58.9 - Irritable bowel syndrome without diarrhea, R00.2 - Palpitations, R11.0 - Nausea, R68.89 - Other general symptoms and signs, R79.89 - Other specified abnormal findings of blood chemistry Insulin Today F41.1 - Generalized anxiety disorder, K58.9 - Irritable bowel syndrome without diarrhea, R00.2 - Palpitations, R11.0 - Nausea, R68.89 - Other general symptoms and signs, R79.89 - Other specified abnormal findings of blood chemistry Lipid Panel Today F41.1 - Generalized anxiety disorder, K58.9 - Irritable bowel syndrome without diarrhea, R00.2 - Palpitations, R11.0 - Nausea, R68.89 - Other general symptoms and signs, R79.89 - Other specified abnormal findings of blood chemistry Medications: New clotrimazole-betamethasone 1-0.05 % 1 appl topical ONCE 45 grams 0RF 30 days Coding Level of Care Code Est Pt Level 4 (25352) Diagnoses Heart palpitations R00.2 Cold sweat R68.89 Nausea R11.0 Anxiety, generalized F41.1 LFT elevation R79.89 Irritable bowel syndrome with both constipation and diarrhea K58.2 Irritable bowel syndrome type: with both diarrhea and constipation Class 2 obesity due to excess calories without serious comorbidity with body mass index (BMI) of 39.0 to 39.9 in adult E66.09; Z68.39 Obesity classification: adult class 2 (BMI 35 - 39.9) Serious obesity comorbidity presence: without serious comorbidity Body mass index: BMI 39.0-39.9 CPT Codes EKG - CPT: 10491-[id number], Complete ([id number]) Additional Codes SUMAN-7 Assessment Billing - SUMAN-7 Assessment Tool: SUMAN-7 Assessment 80241 ([id number])
[2023-04-09 13:51] VITALS: BP 124/82; PULSE 109; O2SAT 98; BMI 44.0
== END 2023-04-09 14:24 | disposition home or self-care (01) ==
PROVIDERS: PCP Internal Medicine; Visit Provider Internal Medicine
DX: R00.2 Palpitations (principal); R68.89 Other general symptoms and signs; R11.0 Nausea; F41.1 Generalized anxiety disorder; R79.89 Other specified abnormal findings of blood chemistry; K58.2 Mixed irritable bowel syndrome; E66.09 Other obesity due to excess calories; Z68.39 Body mass index [BMI] 39.0-39.9, adult
CPT/HCPCS: 93000; 99214

== ENCOUNTER 2023-07-12 09:24 | Outpatient (AMB) | payer OTHER, SELFPAY ==
--- NOTE | 2023-07-12 09:26 | A.OFFPC_ITS ---
Vital Signs 07/12/23 09:28 Height 5 ft 3 in Weight 232 lb 8 oz BMI 41.2 BP 120/72 Blood Pressure Location Rt brachial Position Sitting Pulse 99 Pulse Source Pulse Oximeter Pulse Oximetry (%) 99 Oxygen Delivery Method Room Air Intake Visit Reasons: 6 month follow up Allergies bernice [BERNICE] Allergy (Unknown, Verified 07/12/23 09:30) ITCHING trazodone [TRAZODONE] Allergy (Unknown, Verified 07/12/23 09:30) RASH avocado Allergy (Verified 07/12/23 09:30) Stomach Upset Milk Containing Products (Dairy) Allergy (Verified 07/12/23 09:30) Stomach Upset soy Allergy (Verified 07/12/23 09:30) Stomach Upset escitalopram [From Lexapro] Adverse Reaction (Mild, Verified 07/12/23 09:30) Agitated sertraline [From Zoloft] Adverse Reaction (Verified 07/12/23 09:30) Nightmares Buspirone Adverse Reaction (Uncoded 01/18/23 10:02) Headache Singular Adverse Reaction (Uncoded 01/18/23 10:02) Dry mouth Medication List - Last Reconciled 07/12/23 by Roland Naqvi MD albuterol sulfate 90 mcg/actuation 1 puff inhalation Q6H PRN 30 days alprazolam 0.25 mg PO DAILY PRN 90 days cetirizine (Zyrtec) 10 mg PO DAILY dextroamphetamine-amphetamine 5 mg tabs PO valacyclovir 500 mg PO BID PRN venlafaxine ER 37.5 mg PO BEDTIME Tobacco use date assessed: 07/12/23 Dental Screening Dental Screen Date: 07/12/23 Did you have a dental visit in the last 12 months?: Yes Did you have a dental problem in the last 6 months where you did not have access to dental care?: No Was dental information given to patient?: Patient has dentist HPI 6 month follow up HPI Details Patient came in today for her follow-up appointment She was having signs of hypoglycemia last visit I ordered labs for her She is eating balance diet now Labs are within normal limit Liver function kidney function thyroid CBC came back within normal limit Her symptoms have resolved Patient is concerned that she is not able to lose weight Her BMI is 41.2 with weight of 232, We calculated the calorie intake for the patient In order to lose 1 lb a week patient need to cut down calorie intake to around 1500 Currently she is consuming about 2000 calories Her work is sedentary She need to educate herself regarding calories and make a meal plan. She already had a consultation with the dietitian which did not help much. [facility] Medical History Asthma, mild intermittent Lipid disorder LFT elevation Environmental allergies Depression, major, recurrent PVC (premature ventricular contraction) Heart palpitations Surgical History History of wisdom tooth extraction Family History Father No problems noted. Mother Other malformations of cerebral vessels Other Mental health disorder Social History Housing: Apartment Patient Tobacco Use Status: Never used Tobacco e-Cigarette/Vaping Use: Never Used Second Hand Smoke Exposure: No Current occupational status: employed Cognitive needs: No Hearing needs: No Vision needs: No Questionnaire Thrive Questionnaire Date Thrive assessed: 04/09/23 AUDIT C Alcohol Use Questionnaire (AUDIT-C) 1. How often do you have a drink containing alcohol?: Never 3. How often do you have six or more drinks on one occasion?: Never Total Score: 0 Score Reviewed/Action Taken: Yes SUMAN-7 AMB Questionnaire SUMAN-7 Date SUMAN - 7 assessed: 04/09/23 Source: Developed by Drs. Pepe Warren, Angie Dee, Sanju Mcdaniels and colleagues, with an educational jaiden from [employer]. Review of Systems Const Denies chills and Denies fever(s) ENT Denies epistaxis and Denies nasal discharge Card Denies chest pain Resp Denies chest congestion, Denies cough and Denies hemoptysis GI Denies diarrhea and Denies nausea Skin/Breast Denies rash Neuro Reports no additional complaints Psych Reports no additional complaints Endo Reports no additional complaints Physical exam (Primary Care) Vital Signs: Last Vital Signs Pulse 99 07/12/23 09:28 BP 120/72 07/12/23 09:28 Pulse Ox 99 07/12/23 09:28 Oxygen Delivery Method Room Air 07/12/23 09:28 BMI result Body Mass Index 41.2 Tobacco/Smoking Status: Tobacco use Status Tobacco use date assessed 07/12/23 07/12/23 09:32 Patient Tobacco Use Status Never used Tobacco 07/12/23 09:27 e-Cigarette/Vaping Use Never Used 07/12/23 09:27 Thrive Assessment: Date of Thrive Assessment Date Thrive assessed 04/09/23 07/12/23 09:27 Const General: cooperative, comfortable and no acute distress Orientation/consciousness: patient oriented x3 HENMT Head: Yes normocephalic Eyes General: appearance normal, both eyes and all related structures Neck Neck: Yes supple Resp Effort & Inspection: normal respiratory effort, no cough and no stridor Cardio Rhythm: regular rhythm Heart sounds: S1 normal heart sound present and S2 normal heart sound present Skin General skin exam: turgor normal Neuro General: patient oriented x3, tone normal and moves all extremities Extrem Right lower extremity: no edema Left lower extremity: no edema Assessment and Plan Assessment & Plan (1) Morbid obesity due to excess calories: Code(s): E66.01 - Morbid (severe) obesity due to excess calories (2) Heart palpitations: Code(s): R00.2 - Palpitations (3) Cold sweat: Code(s): R68.89 - Other general symptoms and signs (4) Anxiety, generalized: Code(s): F41.1 - Generalized anxiety disorder Plan Patient came in today for her follow-up appointment She was having signs of hypoglycemia last visit I ordered labs for her She is eating balance diet now Labs are within normal limit Liver function kidney function thyroid CBC came back within normal limit Her symptoms have resolved Patient is concerned that she is not able to lose weight Her BMI is 41.2 with weight of 232, We calculated the calorie intake for the patient In order to lose 1 lb a week patient need to cut down calorie intake to around 1500 Currently she is consuming about 2000 calories Her work is sedentary She need to educate herself regarding calories and make a meal plan. She already had a consultation with the dietitian which did not help much. Coding Level of Care Code Est Pt Level 4 (07504) Diagnoses Morbid obesity due to excess calories E66.01 Heart palpitations R00.2 Cold sweat R68.89 Anxiety, generalized F41.1
[2023-07-12 09:28] VITALS: BP 120/72; PULSE 99; O2SAT 99; BMI 41.2
== END 2023-07-12 11:24 | disposition home or self-care (01) ==
PROVIDERS: PCP Internal Medicine; Visit Provider Internal Medicine
DX: R00.2 Palpitations (principal); E66.01 Morbid (severe) obesity due to excess calories; Z68.41 Body mass index [BMI] 40.0-44.9, adult; R68.89 Other general symptoms and signs; F41.1 Generalized anxiety disorder
CPT/HCPCS: 99214

== ENCOUNTER 2024-07-08 15:36 | Outpatient (AMB) | payer OTHER, SELFPAY ==
[2024-07-08 15:41] VITALS: BP 122/74; PULSE 89; TEMP 36.9; O2SAT 97
--- NOTE | 2024-07-08 15:42 | MHC.OFFWIV ---
Intake Vital Signs 07/08/24 15:41 Height 5 ft 3 in BP 122/74 Blood Pressure Location Lt brachial Position Sitting Pulse 89 Pulse Source Pulse Oximeter Temp 98.4 F Temp Source Oral Pulse Oximetry (%) 97 Oxygen Delivery Method Room Air Intake Visit Reasons: EP spot on lt leg/numb feeling Patient Tobacco Use Status: Never used Tobacco Allergies bernice [BERNIEC] Allergy (Unknown, Verified 07/08/24 15:44) ITCHING trazodone [TRAZODONE] Allergy (Unknown, Verified 07/08/24 15:44) RASH avocado Allergy (Verified 07/08/24 15:44) Stomach Upset Milk Containing Products (Dairy) Allergy (Verified 07/08/24 15:44) Stomach Upset soy Allergy (Verified 07/08/24 15:44) Stomach Upset escitalopram [From Lexapro] Adverse Reaction (Mild, Verified 07/08/24 15:44) Agitated sertraline [From Zoloft] Adverse Reaction (Verified 07/08/24 15:44) Nightmares Buspirone Adverse Reaction (Uncoded 01/18/23 10:02) Headache Singular Adverse Reaction (Uncoded 01/18/23 10:02) Dry mouth Do you need a note to return to daycare/school/sports/work: Yes HPI HPI Comments History of Present Illness Details Patient is a 38yo F who presents to office with complaint of red spot on R leg and second complaint of spot of leg numbness Redness: Onset Saturday Noticed on top of L leg spot to groin region that had drainage States feels like there is swelling or fluid remaining + redness associated She applied pressure to drain area and said now it is a bruise No fever or chills No simular symptoms in the past + warm compress helped expressed fluid Numbness: R lateral superior knee has baseball sized circular area of numbness States not completely numb but sometimes feels sensation less Ongoing for a while No direct trauma or injury States no symptoms to other extremities No associated pain or weakness States numbness waxes and wanes No worsening or improving factors No skin color changes to area Denies back pain, urine/bowel incontinence, saddle parethesias No other complaints PFSH Medical History Asthma, mild intermittent Lipid disorder LFT elevation Environmental allergies Depression, major, recurrent PVC (premature ventricular contraction) Heart palpitations Surgical History History of wisdom tooth extraction Family History Father No problems noted. Mother Other malformations of cerebral vessels Other Mental health disorder Social History Housing: Apartment Patient Tobacco Use Status: Never used Tobacco e-Cigarette/Vaping Use: Never Used Second Hand Smoke Exposure: No Current occupational status: employed Cognitive needs: No Hearing needs: No Vision needs: No Review of Systems Const Denies chills and Denies fever(s) Denies urinary incontinence Musc Reports numbness (L lateral leg superior to L knee) Skin/Breast Reports lesions (redness/discomfort L groin), Reports erythema and Reports skin pain Neuro Reports numbness (L lateral leg superior to L knee) Physical Exam Vital Signs: Last Vital Signs Temp 98.4 F 07/08/24 15:41 Pulse 89 07/08/24 15:41 BP 122/74 07/08/24 15:41 Pulse Ox 97 07/08/24 15:41 Oxygen Delivery Method Room Air 07/08/24 15:41 General: Non-toxic, NAD. Speaking full sentences. Skin: Warm dry throughout Bilateral legs are symmetrical in size and shape bilaterally No skin discoloration to L anterior knee/distal femur region L groin pt has one singular circular approx 1cm x 2cm area of blue/purple discoloration with central induration. No surrounding erythema or warmth. No fluctuance or drainage Eye: EOMI Respiratory: No tachypnea Cardiac: Nopedal edema bilaterally MSK: + Full ROM LLE with flexion/extension at L hip and knee. 5/5 strength dorsal/plantar flexion great toe bilarerally. Neurology: Alert. No aphasia or facial droop. Gait without abnormality or foot drop. 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 Plan: Pt seen and evaluated Area is small and contained without drainage collection noted Pt will trial mupirocin initially If not improved x 1 week or any worse as discussed with pt (fever, increased redness/pain) then take oral Bactrim with food (avoid alcohol) Continue warm compresses Pt gave veral understanding (2) IT band syndrome: Code(s): M76.30 - Iliotibial band syndrome, unspecified leg Qualifiers: Laterality: left Qualified Code(s): M76.32 - Iliotibial band syndrome, left leg Plan: Pt evaluated No concern for spinal neurological involvement She has isolated area without associated weakness Location appears IT band in nature but there is no associated pain Discussed IT band stretches to try and showed how to research online We also discussed meralgia peristeticas diagnosis but location is not L groin/lateral proximal high, it is lower outside superior knee. She will monitor symptoms and she was informed of worsening s/s that warrant immediare evaluation such as urine/bowel incontinence or saddle parethesias and foot drop She expressed verbal unerstanding Medications: New sulfamethoxazole-trimethoprim 800-160 mg (Bactrim DS) 1 tab PO BID 14 tabs 0RF mupirocin 2% 1 appl topical BID 22 grams 0RF Coding Level of Care Code Est Pt Level 3 (46889) Diagnoses Ingrown hair L73.1 Iliotibial band syndrome of left side M76.32 Laterality: left
--- OUTSIDE RECORDS SUMMARY | 2024-07-08 16:05 | XMS_ITS | Data Portability ---
Author Organization [place] - [facility], Allergy Address [address] [address] Care Team Providers Care Medical Reviewer Name Role Phone HINA NAPOLES Primary Care Provider Assessment No assessment recorded. Plan of Treatment Reminders Order Date Submit Date Provider Last Modified By Organization Details Last Modified Time Details Appointments None record ed. Lab None record ed. Referral None record ed. Procedures None record ed. Surgeries None record ed. Imaging None record ed. Medication Orders None record ed. Patient TargetsNo targets recorded. Patient InstructionsNo instructions recorded. Reason for Referral None Reported. Results Created Date Observation Date Name Description Value Unit Range Abnormal Flag Note LastModifiedBy Organization Detail LastModifiedTime 08/22/19 24 01/01/2023 home sleep study No observ ation record ed. [email or web address] Not Available 2023 11:40:31 Result Notes None recorded. Problems Name Problem SNOMED Code Status Onset Date Resolution Date Notes Provider Name and Address Organization Details Recorded Time Follow- up visit Active 2017 Encounter for follow-up examinatio n after completed treatment for conditions other than malignant neoplasm; Note: Date Diagnosed: 12/12/2017 2:46 PM (Z09) Not Available [facility] 4 03:30:57 Lesion of oral mucosa [id number] 9106 Active 2017 Other lesions of oral mucosa; Note: Date Diagnosed: 11/01/2017 1:06 PM (K13.79) Not Available [facility] 4 03:30:56 Problem Notes None recorded. Medical Equipment None Reported. Allergies Allergen ID Allergen Name Allergen Category Reaction Reaction Severity Criticality Documentation Date Start Date Code Code System Note Provider Name and Address Organization Details Recorded Time 159425 trazodone medicatio n other Not available Not available 06/25/2023 19024 RxNorm React ion: unkno wn, unspe cifie d;; Not Available [facility] 4 01:22:08 108424 bernice extract food,medi cation other Not available Not available 06/25/2023 04476 1 RxNorm React ion: unkno wn, unspe cifie d;; Not Available [facility] 4 01:22:09 537295 avocado allergeni c extract food Not available Not available Not available 07/17/2023 99981 2 RxNorm Debbie choi MA - [facility] 4 14:40:54 Medications Name Sig Start Date Stop Date Status Note LastModified by Organization Details LastModified Time Adderall active Not Available Not Avai lable Not Available ProAir HFA 90 mcg/actuat ion aerosol inhaler 018 active Medication ID: [id number] Durat ion Value: 30 Brand Name: ProAir HFA Send Method: E-Prescribed Subs Allowed: subs OK Medicatio nGenericName : ProAir HFA Not Available Not Available Not Available Vitals Date Recorded Body height Body mass index (BMI) Body weight Provider Name and Address Organization Details Last Updated DateTime 07/17/2023 157.48 cm 40.2 kg/m2 73113.32 g Debbie Goldsmith MA - [facility] 07/17/2023 14:40:38 Social History None recorded. Functional Status None recorded. Mental Status None recorded. Family History Nothing Reported. Medical History No medical history recorded. Gynecological HistoryNo gynecological history recorded. Obstetrics History GPAL:G 0 P 0 0 0 0 Immunizations Vaccine Type Date Status Note Provider Nam e and Address Organization Details Recorded Time influenza, seasonal, intradermal, preservative free 3 completed Debbie choi MA - [facility] 07/17/2023 14:42:07 Past Encounters Encounter ID Performer Location Encounter Start Date Encounter Closed Date Diagnosis/Indication Diagnosis SNOMED-CT Code Diagnosis ICD10 Code Diagnosis Note [id number] MARIAELENA AYALA PA-C [facility] [address] [place] [address] 07/17/2023 14:16:45 07/17/2023 15:05:14 Lesion of oral mucosa [id number] 765707 K13.79 Health Concerns Section Related Observation LastModified by Organization Detai ls LastModified Time None Recorded Concern Status LastModified by Organization Details LastModified Time None Recorded Advance Directives Directive None Recorded Payers Insurance Date Sequence Insurance Name Policy Number Policy Leo Covered Member ID Leo Member ID Guarantor Name 04/08/2024 Cat BENNETT [id number] Katrina Mendes [id number] Katrina Mendes Notes Date Note Type Note Provider Name and Address Organization Details Recorded Time 07/17/2023 text/html 37 year old clarice damian presents today for evaluation of snoring.She believes she has snored for most of her life. The snoring seems to be worse when she is laying on her back. When she sleeps on her side she snores very little. In general she does feel congested in her nose. Reports that it is rare that she is able to comfortably breathe through her nose. She uses nasal saline frequently, which helps. She feels the right side of her nose is more prone to congestion than the left. She feels her sense of smell is a bit decreased, and sometimes things smell off before she can identify the true smell.She does have a history of seasonal allergies, which she manages with Zyrtec. She believes she tried Flonase when she was in high school, but does not recall it making much of a difference. She has used breathe right strips with little improvement as well. Reports a history of recurrent sinusitis in the past.She did have a sleep study at [facility] which per her report did not show apnea. Yolie choi MA - [facility] 04/08/2024 16:21:37 OBGyn Episode No OBEpisode recorded.
== END 2024-07-08 16:08 | disposition home or self-care (01) ==
PROVIDERS: PCP Internal Medicine; Visit Provider Physician Assistant
DX: L73.1 Pseudofolliculitis barbae (principal); M76.32 Iliotibial band syndrome, left leg

== ENCOUNTER → 2024-07-08 15:36 | Outpatient (BNVA) | payer OTHER, SELFPAY | PROVIDERS: PCP Internal Medicine; Visit Provider Physician Assistant ==